=== PATIENT | male | born 1955 | race Caucasian/White ===

== ENCOUNTER 2017-08-15 22:55 | Emergency (ER) | payer MEDICAID ==
[~2017-08-15] VITALS: Ht 182.9 cm; Wt 118.5 kg
[~2017-08-15 22:55] MED LIST: LISI40TA; METO-40
[2017-08-15] MEDS ORDERED: ALBUTEROL/IPRATROPIUM 2.5MG/0.5MG, 3 ML NPPB ONE (23:30)
[2017-08-15 23:39] LABS: BASOPHILS # (AUTO) 0.05 x10^3/uL (0-0.1); BASOPHILS % (AUTO) 0 % (0-1); EOSINOPHILS # (AUTO) 0.31 x10^3/uL (0-0.4); EOSINOPHILS % (AUTO) 3 % (1-7); LYMPHOCYTES # (AUTO) 1.92 x10^3/uL (1-3.4); LYMPHOCYTES % (AUTO) 16 % (22-44); MD NO; MEAN CORPUSCULAR HEMOGLOBIN 31.6 pg (27.5-34.5); MEAN CORPUSCULAR HGB CONC 34.8 g/dL (33.2-36.2); MEAN CORPUSCULAR VOLUME 90.8 fL (81-97); MEAN PLATELET VOLUME 8.1 fL (7.4-10.4); MONOCYTES # (AUTO) 0.51 x10^3/uL (0.2-0.8); MONOCYTES % (AUTO) 4 % (2-9); NEUTROPHILS # (AUTO) 9.23 x10^3/uL (1.8-6.8); NEUTROPHILS % (AUTO) 77 % (42-75); PLATELET COUNT 303 x10^3/uL (130-400); RED BLOOD COUNT 4.77 x10^6/uL (4.38-5.82); RED CELL DISTRIBUTION WIDTH 13.4 % (9.4-14.8)
[2017-08-15] MEDS ORDERED: ALBUTEROL/IPRATROPIUM 2.5MG/0.5MG, 3 ML ONE (23:44)
[2017-08-15 23:52] LABS: ALBUMIN 3.6 g/dL (3.4-5.0); ANION GAP 9 mmol/L (5-15); CALCIUM 8.5 mg/dL (8.5-10.1); CHLORIDE 100 mmol/L (98-107)
[2017-08-15 23:56] LABS: ALANINE AMINOTRANSFERASE 25 U/L (12-78); ALKALINE PHOSPHATASE 112 U/L (45-117); BILIRUBIN,TOTAL 0.6 mg/dL (0.2-1.0); TOTAL PROTEIN 7.4 g/dL (6.4-8.2)
[2017-08-16 00:46] VITALS: BP 113/68
== END 2017-08-16 00:51 | disposition home or self-care (01) ==
LOC: ED 08-16 00:34
DX: J43.9 Emphysema, unspecified (principal); I10 Essential (primary) hypertension; Z87.891 Personal history of nicotine dependence
CPT/HCPCS: 36415; 71045; 80053; 85025; 93005; 94640; 99285; J7512; J7620

== ENCOUNTER 2017-09-16 00:46 | Emergency (ER) | payer MEDICAID ==
[~2017-09-16] VITALS: Ht 182.9 cm; Wt 124.1 kg
[2017-09-16] MEDS ORDERED: ALBUTEROL/IPRATROPIUM 2.5MG/0.5MG, 3 ML ONE (01:18)
[2017-09-16] MEDS ORDERED: ALBUTEROL/IPRATROPIUM 2.5MG/0.5MG, 3 ML NPPB ONE (01:30)
[2017-09-16] MEDS ORDERED: CYCL-259 PO (01:54)
[2017-09-16] MEDS ORDERED: HYDR-3245 PO (01:54)
[2017-09-16 01:58] VITALS: BP 156/69
== END 2017-09-16 02:50 | disposition home or self-care (01) ==
LOC: ED 02:09
DX: J98.01 Acute bronchospasm (principal); J44.9 Chronic obstructive pulmonary disease, unspecified; I10 Essential (primary) hypertension; Z87.891 Personal history of nicotine dependence; Z88.0 Allergy status to penicillin
CPT/HCPCS: 71046; 94640; 99284; J7512; J7620

== ENCOUNTER 2017-10-17 05:25 | Emergency (ER) | payer MEDICAID ==
[~2017-10-17] VITALS: Ht 182.9 cm; Wt 129.3 kg
[~2017-10-17 05:25] MED LIST changes: +CYCL-259 PO; +HYDR-3245 PO
[2017-10-17] MEDS ORDERED: HYDR100T25 PO (05:33)
[2017-10-17] MEDS ORDERED: LISI-167 PO (05:33)
[2017-10-17] MEDS ORDERED: METHOCARBAMOL 750 MG TABLET ONE (06:09)
[2017-10-17] MEDS ORDERED: HYDROcodone/APAP 5/325 TABLET ONE (06:09)
[2017-10-17] MEDS ORDERED: HYDROcodone/APAP 5/325 TABLET PO ONE (06:30)
[2017-10-17] MEDS ORDERED: METHOCARBAMOL 750 MG TABLET PO ONE (06:30)
[2017-10-17 07:46] VITALS: BP 127/88
== END 2017-10-17 07:48 | disposition home or self-care (01) ==
LOC: ED 06:50
DX: S16.1XXA Strain of muscle, fascia and tendon at neck level, initial encounter (principal); J44.9 Chronic obstructive pulmonary disease, unspecified; I10 Essential (primary) hypertension; Z87.891 Personal history of nicotine dependence; X58.XXXA Exposure to other specified factors, initial encounter; Y93.89 Activity, other specified; Y99.8 Other external cause status; Y92.89 Other specified places as the place of occurrence of the external cause
CPT/HCPCS: 72125; 99284

== ENCOUNTER 2019-05-05 02:52 | Inpatient (IN) | payer MEDICAID ==
[~2019-05-05] VITALS: Ht 182.9 cm; Wt 113.1 kg
[~2019-05-05 02:52] MED LIST changes: +AMLO10TA8 PO; +HYDR100T25 PO; +LISI-167 PO
--- NOTE | 2019-05-05 03:19 | NUR ---
PT HERE FOR SUDDEN ONSET DIZZINESS AND DIAPHORISIS WHILE HELPING A FRIEND MOVE. VSS. PT HAS HX OF HTN. PT DENIES CHEST PAIN. PT GIVEN ASA AND LAB AT BEDSIDE. CALL LIGHT IN REACH
[2019-05-05 03:27] LABS: BASOPHILS # (AUTO) 0.08 x10^3/uL (0-0.1); BASOPHILS % (AUTO) 1 % (0-1); EOSINOPHILS # (AUTO) 0.51 x10^3/uL (0-0.4); EOSINOPHILS % (AUTO) 5 % (1-7); LYMPHOCYTES # (AUTO) 2.15 x10^3/uL (1-3.4); LYMPHOCYTES % (AUTO) 20 % (22-44); MD NO; MEAN CORPUSCULAR HEMOGLOBIN 31.1 pg (27.5-34.5); MEAN CORPUSCULAR HGB CONC 33.3 g/dL (33.2-36.2); MEAN CORPUSCULAR VOLUME 93.3 fL (81-97); MEAN PLATELET VOLUME 8.4 fL (7.4-10.4); MONOCYTES % (AUTO) 7 % (2-9); NEUTROPHILS # (AUTO) 7.16 x10^3/uL (1.8-6.8); NEUTROPHILS % (AUTO) 68 % (42-75); PLATELET COUNT 293 x10^3/uL (130-400); RED BLOOD COUNT 4.64 x10^6/uL (4.38-5.82); RED CELL DISTRIBUTION WIDTH 13.7 % (9.4-14.8)
[2019-05-05] MEDS ORDERED: ASPIRIN 81 MG TABLET CHEW PO ONE (03:30)
[2019-05-05 03:40] LABS: ALANINE AMINOTRANSFERASE 17 U/L (12-78); ALBUMIN 3.5 g/dL (3.4-5.0); ANION GAP 8 mmol/L (5-15); CALCIUM 8.7 mg/dL (8.5-10.1); CHLORIDE 111 mmol/L (98-107); CREATININE 1.32 mg/dL (0.7-1.3)
[2019-05-05 03:44] LABS: ALKALINE PHOSPHATASE 121 U/L (45-117); BILIRUBIN,TOTAL 0.6 mg/dL (0.2-1.0); TOTAL PROTEIN 7.2 g/dL (6.4-8.2); TROPONIN I < 0.015 ng/mL (0.000-0.045)
[2019-05-05] MEDS ORDERED: methylPREDNISolone SOD SUCC 125 MG/2 ML IVPush STA (04:15)
[2019-05-05] MEDS ORDERED: ALBUTEROL/IPRATROPIUM 2.5MG/0.5MG, 3 ML NPPB ONE (04:30)
[2019-05-05] MEDS ORDERED: CEFTRIAXONE PMX 1GM/50ML 50 ML IV ONE (04:30)
[2019-05-05] MEDS ORDERED: AZITHROMYCIN 500 MG in SODIUM CHLORIDE 0.9% 250 ML IV ONE (04:30)
[2019-05-05] MEDS ORDERED: methylPREDNISolone SOD SUCC 125 MG/2 ML ONE (04:32)
[2019-05-05] MEDS ORDERED: CEFTRIAXONE PMX 1GM/50ML 50 ML ONE (04:32)
[2019-05-05] MEDS ORDERED: CARV25TA12 PO (04:40)
[2019-05-05] MEDS ORDERED: ACETAMINOPHEN 500 MG TABLET ONE (04:43)
[2019-05-05] MEDS ORDERED: ACETAMINOPHEN 500 MG TABLET PO ONE (05:00)
[2019-05-05] MEDS: HEPARIN 5,000 UNITS/ML, 1ML SQ SCH ×3 (06:00→20:24)
[2019-05-05] MEDS ORDERED: ONDANSETRON 2MG/ML, 2ML IVPush PRN (06:00)
[2019-05-05] MEDS ORDERED: hydrALAzine 20 MG/ML, 1ML IVPush PRN (06:00)
[2019-05-05] MEDS: AZITHROMYCIN 500 MG in SODIUM CHLORIDE 0.9% 250 ML IV SCH (06:21)
[2019-05-05 08:27] VITALS: BP 110/68
[2019-05-05 08:43] LABS: TROPONIN I < 0.015 ng/mL (0.000-0.045)
[2019-05-05] MEDS: GUAIFENESIN 200 MG TABLET PO SCH ×4 (09:48→20:23)
[2019-05-05 12:10] LABS: TROPONIN I < 0.015 ng/mL (0.000-0.045)
[2019-05-05 12:52] VITALS: BP 120/75
[2019-05-05] MEDS ORDERED: ALBUTEROL SULFATE 2.5 MG/3 ML ONE (13:17)
[2019-05-05] MEDS: ALBUTEROL SULFATE 2.5 MG/3 ML NPPB SCH ×2 (13:20→22:20)
[2019-05-05] MEDS: CEFTRIAXONE PMX 2GM/50ML 50 ML IV SCH (14:24)
[2019-05-05] MEDS: BUTALB/APAP/CAFFEINE 50MG/325MG/40MG PO PRN ×2 (14:26→20:23)
[2019-05-05 16:38] LABS: TROPONIN I < 0.015 ng/mL (0.000-0.045)
[2019-05-05 18:49] VITALS: BP 132/75
[2019-05-05 21:15] LABS: RAPID INFLUENZA A Negative (Negative); RAPID INFLUENZA B Negative (Negative)
[2019-05-05 22:36] LABS: AMPHETAMINE SCREEN, URINE Negative (Negative); BARBITURATE SCREEN, URINE Positive (Negative); BENZODIAZEPINE SCREEN, URINE Negative (Negative); CANNABINOID SCREEN, URINE Negative (Negative); COCAINE SCREEN, URINE Negative (Negative); METHADONE SCREEN, URINE Negative (Negative); OPIATE SCREEN, URINE Negative (Negative)
[2019-05-06 01:41] VITALS: BP 128/74
[2019-05-06] MEDS: BUTALB/APAP/CAFFEINE 50MG/325MG/40MG PO PRN ×2 (04:59→11:22)
[2019-05-06] MEDS: HEPARIN 5,000 UNITS/ML, 1ML SQ SCH (04:59)
[2019-05-06] MEDS: AZITHROMYCIN 500 MG in SODIUM CHLORIDE 0.9% 250 ML IV SCH (05:33)
[2019-05-06] MEDS: GUAIFENESIN 200 MG TABLET PO SCH ×4 (05:34→19:32)
[2019-05-06 06:20] LABS: BASOPHILS # (AUTO) 0.02 x10^3/uL (0-0.1); BASOPHILS % (AUTO) 0 % (0-1); EOSINOPHILS % (AUTO) 0 % (1-7); LYMPHOCYTES % (AUTO) 10 % (22-44); MD NO; MEAN CORPUSCULAR HEMOGLOBIN 30.3 pg (27.5-34.5); MEAN CORPUSCULAR VOLUME 91.8 fL (81-97); MEAN PLATELET VOLUME 8.5 fL (7.4-10.4); MONOCYTES # (AUTO) 0.79 x10^3/uL (0.2-0.8); MONOCYTES % (AUTO) 6 % (2-9); NEUTROPHILS % (AUTO) 84 % (42-75); PLATELET COUNT 249 x10^3/uL (130-400); RED BLOOD COUNT 4.31 x10^6/uL (4.38-5.82); RED CELL DISTRIBUTION WIDTH 13.9 % (9.4-14.8)
[2019-05-06 06:32] LABS: ANION GAP 5 mmol/L (5-15); CALCIUM 9.1 mg/dL (8.5-10.1); CHLORIDE 114 mmol/L (98-107)
[2019-05-06 06:37] LABS: ALANINE AMINOTRANSFERASE 15 U/L (12-78); ALBUMIN 3.3 g/dL (3.4-5.0); ALKALINE PHOSPHATASE 108 U/L (45-117); BILIRUBIN,TOTAL 0.9 mg/dL (0.2-1.0); CREATININE 1.29 mg/dL (0.7-1.3); TOTAL PROTEIN 6.9 g/dL (6.4-8.2)
[2019-05-06 07:34] VITALS: BP 148/89
[2019-05-06] MEDS: ALBUTEROL SULFATE 2.5 MG/3 ML NPPB SCH (07:57)
[2019-05-06] MEDS: ENOXAPARIN 40 MG/0.4 ML SQ SCH (08:00)
[2019-05-06] MEDS: CEFTRIAXONE PMX 2GM/50ML 50 ML IV SCH (14:00)
[2019-05-06 15:07] VITALS: BP 132/87
[2019-05-06] MEDS ORDERED: DIPHENHYDRAMINE 25 MG CAPSULE PO ONE (19:00)
[2019-05-06 19:02] VITALS: BP 135/87
[2019-05-06] MEDS ORDERED: ALBUTEROL SULFATE 2.5 MG/3 ML NPPB SCH (21:00)
[2019-05-06] MEDS ORDERED: DEXAMETHASONE 4 MG/ML, 1ML IVPush ONE (23:00)
[2019-05-06] MEDS ORDERED: DIPHENHYDRAMINE 50 MG/ML, 1ML IVPush ONE (23:00)
[2019-05-07] MEDS: ACETAMINOPHEN 325 MG TABLET PO PRN ×3 (02:40→21:11)
[2019-05-07 03:55] VITALS: BP 142/69
[2019-05-07] MEDS: GUAIFENESIN 200 MG TABLET PO SCH ×4 (05:30→21:11)
[2019-05-07] MEDS: AZITHROMYCIN 500 MG in SODIUM CHLORIDE 0.9% 250 ML IV SCH (05:30)
[2019-05-07 05:41] LABS: BASOPHILS % (AUTO) 0 % (0-1); EOSINOPHILS # (AUTO) 0.14 x10^3/uL (0-0.4); EOSINOPHILS % (AUTO) 1 % (1-7); LYMPHOCYTES # (AUTO) 0.39 x10^3/uL (1-3.4); LYMPHOCYTES % (AUTO) 4 % (22-44); MD NO; MEAN CORPUSCULAR HEMOGLOBIN 30.6 pg (27.5-34.5); MEAN CORPUSCULAR HGB CONC 32.9 g/dL (33.2-36.2); MEAN CORPUSCULAR VOLUME 92.9 fL (81-97); MEAN PLATELET VOLUME 8.9 fL (7.4-10.4); MONOCYTES # (AUTO) 0.05 x10^3/uL (0.2-0.8); MONOCYTES % (AUTO) 1 % (2-9); NEUTROPHILS # (AUTO) 9.79 x10^3/uL (1.8-6.8); NEUTROPHILS % (AUTO) 94 % (42-75); PLATELET COUNT 249 x10^3/uL (130-400); RED BLOOD COUNT 4.48 x10^6/uL (4.38-5.82); RED CELL DISTRIBUTION WIDTH 13.8 % (9.4-14.8)
[2019-05-07] MEDS: ENOXAPARIN 40 MG/0.4 ML SQ SCH (08:00)
[2019-05-07 08:07] VITALS: BP 174/102
[2019-05-07] MEDS ORDERED: DOXYCYCLINE 100MG TABLET PO SCH (09:00)
[2019-05-07] MEDS ORDERED: CEFDINIR 300 MG CAPSULE PO SCH (09:00)
[2019-05-07] MEDS ORDERED: LEVOFLOXACIN/PMX 500MG/100ML 100 ML IV SCH (12:00)
[2019-05-07 13:30] VITALS: BP 131/80
[2019-05-07] MEDS: DIPHENHYDRAMINE 25 MG CAPSULE PO PRN (16:37)
[2019-05-07 20:10] VITALS: BP 156/89
[2019-05-07] MEDS ORDERED: ROPINIROLE 0.5MG TABLET PO ONE (23:00)
[2019-05-08] MEDS: DIPHENHYDRAMINE 25 MG CAPSULE PO PRN ×3 (00:17→16:08)
[2019-05-08 01:21] VITALS: BP 161/88
[2019-05-08] MEDS: GUAIFENESIN 200 MG TABLET PO SCH ×4 (06:09→20:42)
[2019-05-08] MEDS: BUTALB/APAP/CAFFEINE 50MG/325MG/40MG PO PRN ×2 (06:12→16:08)
[2019-05-08] MEDS: ACETAMINOPHEN 325 MG TABLET PO PRN ×2 (06:12→20:42)
[2019-05-08 07:26] VITALS: BP 144/84
[2019-05-08] MEDS: ENOXAPARIN 40 MG/0.4 ML SQ SCH (08:00)
[2019-05-08] MEDS: LEVOFLOXACIN 750 MG TABLET PO SCH (08:51)
[2019-05-08] MEDS ORDERED: MAGNESIUM HYDROXIDE 8%, 30ML UDC PO PRN (10:00)
[2019-05-08] MEDS: DOCUSATE 100 MG CAPSULE PO PRN (10:17)
[2019-05-08 12:38] VITALS: BP 150/92
[2019-05-08 19:03] VITALS: BP 141/87
[2019-05-09] VITALS (10 sets, daily range): BP systolic 115–167; BP diastolic 73–106
[2019-05-09] MEDS: DIPHENHYDRAMINE 25 MG CAPSULE PO PRN ×2 (00:37→08:16)
[2019-05-09 05:17] LABS: BASOPHILS # (AUTO) 0.02 x10^3/uL (0-0.1); BASOPHILS % (AUTO) 0 % (0-1); EOSINOPHILS # (AUTO) 0.16 x10^3/uL (0-0.4); EOSINOPHILS % (AUTO) 2 % (1-7); LYMPHOCYTES # (AUTO) 2.32 x10^3/uL (1-3.4); LYMPHOCYTES % (AUTO) 24 % (22-44); MD NO; MEAN CORPUSCULAR HEMOGLOBIN 30.6 pg (27.5-34.5); MEAN CORPUSCULAR HGB CONC 33.3 g/dL (33.2-36.2); MEAN PLATELET VOLUME 8.4 fL (7.4-10.4); MONOCYTES # (AUTO) 0.78 x10^3/uL (0.2-0.8); MONOCYTES % (AUTO) 8 % (2-9); NEUTROPHILS # (AUTO) 6.31 x10^3/uL (1.8-6.8); NEUTROPHILS % (AUTO) 66 % (42-75); PLATELET COUNT 230 x10^3/uL (130-400); RED BLOOD COUNT 4.36 x10^6/uL (4.38-5.82); RED CELL DISTRIBUTION WIDTH 13.4 % (9.4-14.8)
[2019-05-09] MEDS: GUAIFENESIN 200 MG TABLET PO SCH ×4 (06:36→20:20)
[2019-05-09] MEDS: ENOXAPARIN 40 MG/0.4 ML SQ SCH (08:00)
[2019-05-09] MEDS: LEVOFLOXACIN 750 MG TABLET PO SCH (08:09)
[2019-05-09] MEDS: ACETAMINOPHEN 325 MG TABLET PO PRN ×2 (08:16→16:39)
[2019-05-09] MEDS ORDERED: AMLODIPINE 10 MG TAB ONE (10:37)
[2019-05-09] MEDS ORDERED: LISINOPRIL 20 MG TABLET ONE (10:38)
[2019-05-09] MEDS ORDERED: CARVEDILOL 25 MG TABLET ONE (10:39)
[2019-05-09] MEDS: DOCUSATE 100 MG CAPSULE PO PRN (20:20)
[2019-05-09] MEDS: CARVEDILOL 25 MG TABLET PO SCH (20:21)
[2019-05-09] MEDS: LISINOPRIL 20 MG TABLET PO SCH ×2 (20:21→21:00)
[2019-05-10 02:07] VITALS: BP 105/71
[2019-05-10] MEDS: ACETAMINOPHEN 325 MG TABLET PO PRN ×2 (04:29→20:27)
[2019-05-10] MEDS: CARVEDILOL 25 MG TABLET PO SCH ×2 (06:21→18:06)
[2019-05-10] MEDS: GUAIFENESIN 200 MG TABLET PO SCH ×4 (06:21→20:21)
[2019-05-10 07:51] VITALS: BP 100/68
[2019-05-10] MEDS: ENOXAPARIN 40 MG/0.4 ML SQ SCH (08:00)
[2019-05-10] MEDS ORDERED: AMLODIPINE 5 MG TABLET PO SCH (09:00)
[2019-05-10] MEDS: LEVOFLOXACIN 750 MG TABLET PO SCH (09:09)
[2019-05-10] MEDS: LISINOPRIL 20 MG TABLET PO SCH ×2 (09:10→20:21)
[2019-05-10 09:49] VITALS: BP 144/89
[2019-05-10 12:10] VITALS: BP 128/81
[2019-05-10] MEDS ORDERED: GADOTERATE 5 MMOL/10 ML VIAL ONE (14:49)
[2019-05-10] MEDS ORDERED: GADOTERATE 10 MMOL/20 ML SYR ONE (14:49)
[2019-05-10] MEDS: MECLIZINE 25 MG TABLET PO SCH ×2 (15:31→20:21)
[2019-05-10 19:19] VITALS: BP 104/68
[2019-05-10] MEDS: DIPHENHYDRAMINE 25 MG CAPSULE PO PRN (20:27)
[2019-05-11 02:28] VITALS: BP 112/72
[2019-05-11] MEDS: CARVEDILOL 25 MG TABLET PO SCH ×2 (05:34→17:05)
[2019-05-11] MEDS: GUAIFENESIN 200 MG TABLET PO SCH ×4 (05:34→20:16)
[2019-05-11] MEDS: ACETAMINOPHEN 325 MG TABLET PO PRN ×2 (05:40→22:40)
[2019-05-11 07:35] VITALS: BP 99/58
[2019-05-11] MEDS: ENOXAPARIN 40 MG/0.4 ML SQ SCH (08:00)
[2019-05-11 08:11] VITALS: BP 146/83
[2019-05-11] MEDS: MECLIZINE 25 MG TABLET PO SCH ×2 (08:16→20:17)
[2019-05-11] MEDS: LEVOFLOXACIN 750 MG TABLET PO SCH (08:16)
[2019-05-11] MEDS: LISINOPRIL 20 MG TABLET PO SCH ×2 (08:16→20:16)
[2019-05-11] MEDS ORDERED: LIDODERM 5% PATCH TD PRN (09:30)
[2019-05-11 12:33] VITALS: BP 122/70
[2019-05-11] MEDS: IBUPROFEN 600 MG TABLET PO PRN (17:39)
[2019-05-11 19:03] VITALS: BP 126/81
[2019-05-11] MEDS: LIDODERM REMOVE PATCH NOTE XX SCH (20:17)
[2019-05-11] MEDS: DIPHENHYDRAMINE 25 MG CAPSULE PO PRN (22:36)
[2019-05-12 02:00] VITALS: BP 95/63
[2019-05-12] MEDS ORDERED: ALBUTEROL SULFATE 2.5 MG/3 ML NPPB PRN (03:00)
[2019-05-12] MEDS: CARVEDILOL 25 MG TABLET PO SCH ×2 (05:13→16:48)
[2019-05-12] MEDS: GUAIFENESIN 200 MG TABLET PO SCH ×4 (05:14→20:31)
[2019-05-12] MEDS: IBUPROFEN 600 MG TABLET PO PRN (05:14)
[2019-05-12 07:04] VITALS: BP 109/75
[2019-05-12] MEDS: ENOXAPARIN 40 MG/0.4 ML SQ SCH (08:00)
[2019-05-12] MEDS: LISINOPRIL 5 MG TABLET PO SCH ×2 (09:00→10:23)
[2019-05-12] MEDS: LEVOFLOXACIN 750 MG TABLET PO SCH (10:22)
[2019-05-12] MEDS: MECLIZINE 25 MG TABLET PO SCH ×2 (10:23→20:32)
[2019-05-12 13:40] VITALS: BP 110/72
[2019-05-12 18:41] VITALS: BP 111/69
[2019-05-12] MEDS: LIDODERM REMOVE PATCH NOTE XX SCH (20:17)
[2019-05-12 20:30] VITALS: BP 112/77
[2019-05-13] VITALS (10 sets, daily range): BP systolic 106–133; BP diastolic 71–85
[2019-05-13] MEDS: GUAIFENESIN 200 MG TABLET PO SCH ×4 (06:17→20:56)
[2019-05-13] MEDS: CARVEDILOL 25 MG TABLET PO SCH ×2 (06:18→18:03)
[2019-05-13] MEDS ORDERED: MECLIZINE 25 MG TABLET PO PRN (07:30)
[2019-05-13] MEDS: ENOXAPARIN 40 MG/0.4 ML SQ SCH (08:00)
[2019-05-13] MEDS ORDERED: GUAI200T37 PO (11:04)
[2019-05-13] MEDS ORDERED: Lidoderm Remove Patch XX (11:04)
[2019-05-13] MEDS ORDERED: ACET325T26 PO (11:04)
[2019-05-13] MEDS ORDERED: HYDR-3343 PO (11:04)
[2019-05-13] MEDS ORDERED: MECL25TA4 PO (11:04)
[2019-05-13] MEDS: LIDODERM REMOVE PATCH NOTE XX SCH (20:17)
[2019-05-14 01:59] VITALS: BP 103/69
[2019-05-14 05:47] LABS: CREATININE 1.38 mg/dL (0.7-1.3)
[2019-05-14 06:00] VITALS: BP 122/84
[2019-05-14] MEDS: GUAIFENESIN 200 MG TABLET PO SCH ×4 (06:03→20:02)
[2019-05-14] MEDS: CARVEDILOL 25 MG TABLET PO SCH ×2 (06:03→17:14)
[2019-05-14 07:47] VITALS: BP 130/81
[2019-05-14] MEDS: ENOXAPARIN 40 MG/0.4 ML SQ SCH (08:00)
[2019-05-14 12:56] VITALS: BP 144/86
[2019-05-14 19:14] VITALS: BP 135/80
[2019-05-14] MEDS: LIDODERM REMOVE PATCH NOTE XX SCH (20:06)
[2019-05-15 00:02] VITALS: BP 148/81
[2019-05-15 05:46] VITALS: BP 127/81
[2019-05-15] MEDS: GUAIFENESIN 200 MG TABLET PO SCH ×4 (05:48→19:54)
[2019-05-15] MEDS: CARVEDILOL 25 MG TABLET PO SCH ×2 (05:48→16:11)
[2019-05-15 07:35] VITALS: BP 137/90
[2019-05-15] MEDS: ENOXAPARIN 40 MG/0.4 ML SQ SCH (07:52)
[2019-05-15 13:40] VITALS: BP 119/80
[2019-05-15 19:18] VITALS: BP 124/82
[2019-05-15] MEDS: LIDODERM REMOVE PATCH NOTE XX SCH (19:54)
[2019-05-16 02:48] VITALS: BP 119/78
[2019-05-16] MEDS: CARVEDILOL 25 MG TABLET PO SCH ×2 (05:47→16:44)
[2019-05-16] MEDS: GUAIFENESIN 200 MG TABLET PO SCH ×3 (05:47→16:44)
[2019-05-16] MEDS: ENOXAPARIN 40 MG/0.4 ML SQ SCH (07:17)
[2019-05-16 08:02] VITALS: BP 118/83
[2019-05-16 13:55] VITALS: BP 145/95
== END 2019-05-16 16:45 | DRG 140 ==
LOC: ED 04:33 → EDIP 05:01 → 3N 05:13
PROVIDERS: ADMIT Family Medicine; ATTEND Family Medicine
DX: J44.1 Chronic obstructive pulmonary disease with (acute) exacerbation (principal); J15.9 Unspecified bacterial pneumonia; E87.2 Acidosis; J44.0 Chronic obstructive pulmonary disease with (acute) lower respiratory infection; E66.9 Obesity, unspecified; H81.10 Benign paroxysmal vertigo, unspecified ear; N40.0 Benign prostatic hyperplasia without lower urinary tract symptoms; H53.8 Other visual disturbances; M54.9 Dorsalgia, unspecified; K59.00 Constipation, unspecified; R55 Syncope and collapse; I12.9 Hypertensive chronic kidney disease with stage 1 through stage 4 chronic kidney disease, or unspecified chronic kidney disease; N18.9 Chronic kidney disease, unspecified; Z88.0 Allergy status to penicillin; Z68.35 Body mass index [BMI] 35.0-35.9, adult; Z87.891 Personal history of nicotine dependence; Z68.33 Body mass index [BMI] 33.0-33.9, adult
CPT/HCPCS: 36415; 70450; 70553; 71045; 80053; 80307; 82533; 82565; 83605; 83880; 84443; 84484; 85025; 87040; 87400; 93005; 93306; 93880; 94640; 99285; A9575; G0378; J0456; J0696; J1100; J1956; J2405; J7613; J7620; J0360; J1200; J2930; J7050; J7512; Q0163

== ENCOUNTER 2019-09-18 02:03 | Inpatient (IN) | payer MEDICAID ==
[~2019-09-18] VITALS: Ht 182.9 cm; Wt 116.3 kg
[~2019-09-18 02:03] MED LIST changes: +ACET325T26 PO; +CARV25TA12 PO; +GUAI200T37 PO; +HYDR-3343 PO; +Lidoderm Remove Patch XX; +MECL-101 PO
[2019-09-18] MEDS ORDERED: WARF2.5T PO (02:16)
--- NOTE | 2019-09-18 03:39 | NUR ---
pt to room from lobby
--- NOTE | 2019-09-18 04:07 | NUR ---
PT TO ED WITH C/O RIGH LOWER LEG SWELLING, PT HAS HX OF DVT. SWELLING +4 PITTING. LEFT LEG ALSO SWOLLEN +2 NON PITTING. PT ALSO HAD RIGHT HAND BURN ON MIDDLE FINGER WITH RED LINE RUNNING FROM FINGER UP ARM TO ELBOW. PT DENIES ANY OTHER C/O AT THIS TIME. CALL LIGHT WITHIN REACH, MONITORING APPLIED, ALL SAFETY MEASURES IN PLACE.
[2019-09-18 05:12] LABS: BASOPHILS # (AUTO) 0.06 x10^3/uL (0-0.1); BASOPHILS % (AUTO) 1 % (0-1); EOSINOPHILS # (AUTO) 0.27 x10^3/uL (0-0.4); EOSINOPHILS % (AUTO) 3 % (1-7); LYMPHOCYTES # (AUTO) 1.32 x10^3/uL (1-3.4); LYMPHOCYTES % (AUTO) 16 % (22-44); MD NO; MEAN CORPUSCULAR HEMOGLOBIN 29.6 pg (27.5-34.5); MEAN CORPUSCULAR HGB CONC 33.5 g/dL (33.2-36.2); MEAN CORPUSCULAR VOLUME 88.2 fL (81-97); MEAN PLATELET VOLUME 8.5 fL (7.4-10.4); MONOCYTES % (AUTO) 6 % (2-9); NEUTROPHILS # (AUTO) 5.96 x10^3/uL (1.8-6.8); NEUTROPHILS % (AUTO) 74 % (42-75); PLATELET COUNT 253 x10^3/uL (130-400); RED BLOOD COUNT 4.69 x10^6/uL (4.38-5.82); RED CELL DISTRIBUTION WIDTH 14.2 % (9.4-14.8)
--- NOTE | 2019-09-18 05:13 | NUR ---
PT RESTING ON GURNEY WITH EYES CLOSED. MONITORING IN PLACE, CALL LIGHT WITHIN REACH
[2019-09-18 05:16] LABS: INTERNATIONAL NORMALIZED RATIO 0.94 (0.93-1.1)
[2019-09-18] MEDS ORDERED: ONDANSETRON 2MG/ML, 2ML ONE (05:18)
[2019-09-18] MEDS ORDERED: MORPHINE SULFATE 4 MG/ML, 1ML ONE ×2 (05:19→07:21)
[2019-09-18 05:21] LABS: ALBUMIN 3.1 g/dL (3.4-5.0); ANION GAP 4 mmol/L (5-15); CALCIUM 8.6 mg/dL (8.5-10.1); CHLORIDE 106 mmol/L (98-107)
[2019-09-18 05:24] LABS: ALANINE AMINOTRANSFERASE 16 U/L (12-78); ALKALINE PHOSPHATASE 107 U/L (45-117); BILIRUBIN,TOTAL 0.4 mg/dL (0.2-1.0); CREATININE 1.13 mg/dL (0.7-1.3); TOTAL PROTEIN 7.2 g/dL (6.4-8.2)
[2019-09-18] MEDS: MORPHINE SULFATE 4 MG/ML, 1ML IVPush PRN ×2 (05:26→07:23)
[2019-09-18] MEDS ORDERED: ONDANSETRON 2MG/ML, 2ML IVPush ONE (05:30)
[2019-09-18] MEDS ORDERED: CLINDAMYCIN PMX 600MG/50ML 50 ML ONE (06:07)
[2019-09-18] MEDS ORDERED: CLINDAMYCIN PMX 600MG/50ML 50 ML IV ONE (06:30)
--- NOTE | 2019-09-18 06:51 | NUR ---
REPORT TO SURAJ BARBER
[2019-09-18] MEDS ORDERED: hydrALAzine 20 MG/ML, 1ML ONE (07:21)
--- NOTE | 2019-09-18 07:27 | NUR ---
BP 190/110 REPORTED TO . ORDERED 10 MG HYDRALAZINE. PT MEDICATED PER EMAR. ABX STILL INFUSING. PT RESTING ON Sinobpo W/ CALL LIGHT IN REACH. DENIES FURTHER NEEDS AT THIS TIME.
[2019-09-18] MEDS ORDERED: hydrALAzine 20 MG/ML, 1ML IV ONE (07:30)
--- NOTE | 2019-09-18 07:30 | NUR ---
AT BEDSIDE. PT PROVIDED COFFEE PER OK BY .
[2019-09-18] MEDS ORDERED: FUROSEMIDE 40 MG/4 ML IV ONE (08:00)
[2019-09-18] MEDS ORDERED: hydrALAzine 20 MG/ML, 1ML IVPush PRN (08:00)
[2019-09-18] MEDS ORDERED: ACETAMINOPHEN 325 MG TABLET PO PRN (08:00)
--- NOTE | 2019-09-18 08:12 | NUR ---
PT REPORTS RELIEF OF PAIN AFTER MEDS.
--- NOTE | 2019-09-18 08:16 | NUR ---
CARDIAC DIET TRAY DELIVERED.
--- NOTE | 2019-09-18 08:21 | NUR ---
REPORT GIVEN TO POPEYE RUELAS. PT IS READY FOR TRANSFER.
[2019-09-18 08:35] VITALS: BP_SYST 159; BP_SYST 177; BP_DIAS 108; BP_DIAS 146
[2019-09-18] MEDS ORDERED: CARVEDILOL 25 MG TABLET ONE (08:59)
[2019-09-18] MEDS: LISINOPRIL 20 MG TABLET PO SCH (09:06)
[2019-09-18] MEDS: CARVEDILOL 25 MG TABLET PO SCH ×2 (09:06→21:03)
[2019-09-18] MEDS: ERTAPENEM 1 GM in SODIUM CHLORIDE 0.9% 50 ML IV SCH (10:10)
[2019-09-18] MEDS: morphine SULFATE 10 MG/ML, 1ML IVPush PRN ×3 (12:14→21:05)
[2019-09-18 13:23] VITALS: BP 114/73
[2019-09-18] MEDS ORDERED: WARFARIN 2 MG TABLET PO-COUM ONE (16:43)
[2019-09-18] MEDS ORDERED: WARFARIN 3 MG TABLET PO-COUM ONE (16:43)
[2019-09-18] MEDS ORDERED: WARFARIN 5 MG TABLET PO-COUM ONE (18:00)
[2019-09-18 20:12] VITALS: BP 137/79
[2019-09-19 01:00] VITALS: BP 150/85
[2019-09-19] MEDS: morphine SULFATE 10 MG/ML, 1ML IVPush PRN ×3 (04:51→17:18)
[2019-09-19 05:20] LABS: BASOPHILS # (AUTO) 0.03 x10^3/uL (0-0.1); BASOPHILS % (AUTO) 1 % (0-1); EOSINOPHILS # (AUTO) 0.42 x10^3/uL (0-0.4); EOSINOPHILS % (AUTO) 6 % (1-7); LYMPHOCYTES # (AUTO) 1.72 x10^3/uL (1-3.4); LYMPHOCYTES % (AUTO) 26 % (22-44); MD NO; MEAN CORPUSCULAR HEMOGLOBIN 29.8 pg (27.5-34.5); MEAN CORPUSCULAR HGB CONC 33.4 g/dL (33.2-36.2); MEAN CORPUSCULAR VOLUME 89.3 fL (81-97); MEAN PLATELET VOLUME 8.5 fL (7.4-10.4); MONOCYTES # (AUTO) 0.57 x10^3/uL (0.2-0.8); MONOCYTES % (AUTO) 9 % (2-9); NEUTROPHILS # (AUTO) 3.91 x10^3/uL (1.8-6.8); NEUTROPHILS % (AUTO) 59 % (42-75); PLATELET COUNT 269 x10^3/uL (130-400); RED BLOOD COUNT 4.79 x10^6/uL (4.38-5.82)
[2019-09-19 05:23] LABS: INTERNATIONAL NORMALIZED RATIO 0.96 (0.93-1.1); PROTHROMBIN TIME 10.2 Seconds (9.6-11.5)
[2019-09-19 05:28] LABS: ANION GAP 5 mmol/L (5-15); CALCIUM 8.5 mg/dL (8.5-10.1); CHLORIDE 106 mmol/L (98-107); CREATININE 1.15 mg/dL (0.7-1.3)
[2019-09-19 07:34] VITALS: BP 151/81
[2019-09-19] MEDS: LISINOPRIL 20 MG TABLET PO SCH (09:32)
[2019-09-19] MEDS: ERTAPENEM 1 GM in SODIUM CHLORIDE 0.9% 50 ML IV SCH (09:33)
[2019-09-19] MEDS: CARVEDILOL 25 MG TABLET PO SCH ×2 (09:33→20:26)
[2019-09-19 14:53] VITALS: BP 120/72
[2019-09-19] MEDS ORDERED: WARFARIN 2 MG TABLET PO-COUM ONE (17:54)
[2019-09-19] MEDS ORDERED: WARFARIN 3 MG TABLET PO-COUM ONE (17:55)
[2019-09-19] MEDS ORDERED: WARFARIN 5 MG TABLET PO-COUM ONE (18:00)
[2019-09-19 19:18] VITALS: BP 128/76
[2019-09-19] MEDS: OXYcodone IR 5MG TABLET PO PRN (20:27)
[2019-09-20] MEDS: OXYcodone IR 5MG TABLET PO PRN ×4 (00:18→21:08)
[2019-09-20 01:10] VITALS: BP 134/78
[2019-09-20 05:25] LABS: INTERNATIONAL NORMALIZED RATIO 0.98 (0.93-1.1); PROTHROMBIN TIME 10.4 Seconds (9.6-11.5)
[2019-09-20 07:40] VITALS: BP 129/77
[2019-09-20] MEDS ORDERED: FUROSEMIDE 20 MG/2 ML IV ONE (08:30)
[2019-09-20] MEDS: LISINOPRIL 20 MG TABLET PO SCH (10:43)
[2019-09-20] MEDS: CARVEDILOL 25 MG TABLET PO SCH ×2 (10:43→21:09)
[2019-09-20] MEDS: ERTAPENEM 1 GM in SODIUM CHLORIDE 0.9% 50 ML IV SCH (10:46)
[2019-09-20 12:09] VITALS: BP 136/88
[2019-09-20] MEDS ORDERED: WARFARIN 10 MG TABLET PO-COUM ONE (18:00)
[2019-09-20 19:41] VITALS: BP 124/79
[2019-09-21] MEDS: OXYcodone IR 5MG TABLET PO PRN ×5 (01:30→23:41)
[2019-09-21 03:10] VITALS: BP 122/70
[2019-09-21 05:16] LABS: INTERNATIONAL NORMALIZED RATIO 1.06 (0.93-1.1); PROTHROMBIN TIME 11.2 Seconds (9.6-11.5)
[2019-09-21 06:32] VITALS: BP 139/71
[2019-09-21] MEDS: CARVEDILOL 25 MG TABLET PO SCH ×2 (09:43→20:56)
[2019-09-21] MEDS: ERTAPENEM 1 GM in SODIUM CHLORIDE 0.9% 50 ML IV SCH (09:43)
[2019-09-21] MEDS: LISINOPRIL 20 MG TABLET PO SCH (09:43)
[2019-09-21 14:00] VITALS: BP 110/65
[2019-09-21 16:24] VITALS: BP 126/65
[2019-09-21] MEDS ORDERED: WARFARIN 7.5 MG TABLET PO-COUM ONE (18:00)
[2019-09-21 18:44] VITALS: BP 119/68
[2019-09-22 01:51] VITALS: BP 159/87
[2019-09-22] MEDS: OXYcodone IR 5MG TABLET PO PRN ×2 (03:52→08:08)
[2019-09-22 06:27] VITALS: BP 154/86
[2019-09-22] MEDS: LISINOPRIL 20 MG TABLET PO SCH (08:08)
[2019-09-22] MEDS: CARVEDILOL 25 MG TABLET PO SCH (08:08)
[2019-09-22] MEDS: ERTAPENEM 1 GM in SODIUM CHLORIDE 0.9% 50 ML IV SCH (09:21)
[2019-09-22 09:22] LABS: INTERNATIONAL NORMALIZED RATIO 3.39 (0.93-1.1); PROTHROMBIN TIME 36.4 Seconds (9.6-11.5)
[2019-09-22] MEDS ORDERED: CARV25TA12 PO (09:29)
[2019-09-22] MEDS ORDERED: WARF2.5T PO (09:29)
[2019-09-22] MEDS ORDERED: CLIN300C8 PO (09:29)
[2019-09-22] MEDS ORDERED: LISI-170 PO (09:29)
[2019-09-22] MEDS ORDERED: HYDR-3343 PO (09:29)
== END 2019-09-22 11:55 | disposition home or self-care (01) | DRG 383 ==
LOC: ED 05:47 → EDIP 06:53 → 4NE 08:48 → DCLOUNGE 09-22 11:51
PROVIDERS: ADMIT Internal Medicine Infectious Disease; ATTEND Hospitalist
DX: L03.115 Cellulitis of right lower limb (principal); I69.351 Hemiplegia and hemiparesis following cerebral infarction affecting right dominant side; I10 Essential (primary) hypertension; I87.8 Other specified disorders of veins; J44.9 Chronic obstructive pulmonary disease, unspecified; Z79.01 Long term (current) use of anticoagulants; Z82.3 Family history of stroke; Z86.718 Personal history of other venous thrombosis and embolism; Z87.891 Personal history of nicotine dependence; Z88.0 Allergy status to penicillin
CPT/HCPCS: 36415; 80048; 80053; 85025; 85610; 87040; 93005; 96365; 96366; 96375; 96376; 99285; G0378; J1335; J1940; J2405; J0360; J2270

== ENCOUNTER 2020-08-14 12:06 | Emergency (ER) | payer MEDICAID, MEDICARE ==
[~2020-08-14] VITALS: Ht 182.9 cm; Wt 119.3 kg
[~2020-08-14 12:06] MED LIST changes: +AMLO-211 PO; -AMLO10TA8 PO; +CLIN300C9 PO; +LISI-170 PO; +WARF2.5T2 PO
--- NOTE | 2020-08-14 12:54 | NUR ---
WEB SPECIALIST: PT AMBULATORY TO ROOM FROM LOBBY
--- NOTE | 2020-08-14 12:59 | NUR ---
PT AT ED FOR MED REFILL. PT STATES HE RAN OUT A FEW DAYS AGO AND HAS NO REFILLS LEFT. PT DENIES ANY PHYSICAL COMPLAINT AT THIS TIME. PT DENIES CP, SOB, HEADACHE, OR DIZZINES.
[2020-08-14] MEDS ORDERED: CARVEDILOL 12.5 MG TABLET PO ONE (14:00)
[2020-08-14] MEDS ORDERED: RIVAROXABAN 20 MG TABLET PO ONE (14:00)
[2020-08-14] MEDS ORDERED: CARVEDILOL 12.5 MG TABLET ONE (14:24)
[2020-08-14] MEDS ORDERED: RIVAROXABAN 20 MG TABLET ONE (14:24)
[2020-08-14 15:15] VITALS: BP 168/100
== END 2020-08-14 15:45 | disposition home or self-care (01) ==
LOC: ED 14:03
DX: I10 Essential (primary) hypertension (principal); Z76.0 Encounter for issue of repeat prescription; R94.31 Abnormal electrocardiogram [ECG] [EKG]; J44.9 Chronic obstructive pulmonary disease, unspecified; Z86.718 Personal history of other venous thrombosis and embolism; Z87.891 Personal history of nicotine dependence
CPT/HCPCS: 93005; 99283; 99284; 99285